=== PATIENT | male | born 1990 | race Caucasian/White ===

== ENCOUNTER 2020-07-31 22:12 | Inpatient (IN) | payer MEDICAID ==
[~2020-07-31] VITALS: Ht 177.8 cm; Wt 58.6 kg
[~2020-07-31 22:12] MED LIST: QUET25TA PO
[2020-08-01] MEDS ORDERED: ZOLPIDEM TARTRATE 10 MG TABLET PO PRN (02:00)
[2020-08-01] MEDS ORDERED: HALOPERIDOL 5 MG TABLET PO PRN (02:00)
[2020-08-01 02:55] VITALS: BP 136/86
[2020-08-01] MEDS ORDERED: INFLUENZA VIRUS VACCINE QVS 2020-21 (6MO+)/PF 60 MCG/0.5 ML SYRINGE IM ONE (03:45)
[2020-08-01 08:15] VITALS: BP 120/76
[2020-08-01] MEDS ORDERED: CloNIDine HCL 0.1 MG TABLET PO PRN (09:00)
[2020-08-01] MEDS ORDERED: BENZOCAINE/MENTHOL LOZENGE PO PRN (09:00)
[2020-08-01] MEDS ORDERED: LOPERAMIDE HCL 2 MG CAPSULE PO PRN (09:00)
[2020-08-01] MEDS ORDERED: PETROLATUM,WHITE 28 GM JELLY TP PRN (09:00)
[2020-08-01] MEDS ORDERED: BACITRACIN 28 GM OINTMENT TP PRN (09:00)
[2020-08-01] MEDS ORDERED: IBUPROFEN 600 MG TABLET PO PRN (09:00)
[2020-08-01] MEDS ORDERED: ACETAMINOPHEN 325 MG TABLET PO PRN (09:00)
[2020-08-01] MEDS ORDERED: ALBUTEROL SULFATE HFA 90 MCG/PUFF 8 GM INHALER IH PRN (09:00)
[2020-08-01] MEDS ORDERED: ONDANSETRON HCL 4 MG TABLET PO PRN (09:00)
[2020-08-01] MEDS ORDERED: MAGNESIUM HYDROXIDE SUSPENSION 30 ML UDCUP PO PRN (09:00)
[2020-08-01] MEDS ORDERED: OMEPRAZOLE 20 MG CAPSULE PO PRN (09:00)
[2020-08-01] MEDS ORDERED: MAG HYDROX/AL HYDROX/SIMETH ES 30 ML SUSPENSION UDCUP PO PRN (09:00)
[2020-08-01] MEDS ORDERED: DOCUSATE SODIUM 100 MG CAPSULE PO PRN (09:00)
[2020-08-01] MEDS: ARIPiprazole 15 MG TABLET PO SCH (10:28)
[2020-08-01] MEDS: DIVALPROEX SODIUM 500 MG DR TABLET PO SCH ×2 (10:28→17:20)
[2020-08-01 17:46] VITALS: BP 133/77
[2020-08-02 04:36] VITALS: BP 131/83
[2020-08-02 08:09] VITALS: BP 138/83
[2020-08-02] MEDS: ARIPiprazole 15 MG TABLET PO SCH (08:49)
[2020-08-02] MEDS: DIVALPROEX SODIUM 500 MG DR TABLET PO SCH ×2 (08:49→16:40)
[2020-08-02 16:21] VITALS: BP 134/82
[2020-08-03 01:01] VITALS: BP 138/94
[2020-08-03 08:17] VITALS: BP 139/90
[2020-08-03] MEDS: ARIPiprazole 15 MG TABLET PO SCH (08:27)
[2020-08-03] MEDS: MULTIVITAMINS WITH MINERALS, THERAPEUTIC TABLET PO SCH (08:27)
[2020-08-03] MEDS: DIVALPROEX SODIUM 500 MG DR TABLET PO SCH ×2 (08:27→16:02)
[2020-08-03] MEDS: LORazepam 2 MG TABLET PO PRN (16:04)
[2020-08-03 16:29] VITALS: BP 130/90
[2020-08-04 06:31] VITALS: BP 124/81
[2020-08-04 07:32] LABS: BASOPHILS % (AUTO) 0.9 % (0.0-2.0); EOSINOPHILS % (AUTO) 1.5 % (1.0-6.0); HEMATOCRIT 45.1 % (41-53); HEMOGLOBIN 15.7 g/dL (13.5-17.5); LYMPHOCYTES # (AUTO) 1.6 K/uL (1.0-4.8); LYMPHOCYTES % (AUTO) 29.6 % (22.0-44.0); MEAN CORPUSCULAR HEMOGLOBIN 32.3 pg (26.0-34.0); MEAN CORPUSCULAR HGB CONC 34.7 G/dL (31.0-37.0); MEAN CORPUSCULAR VOLUME 93 fL (80-100); MONOCYTES # (AUTO) 0.4 K/uL (0.1-1.0); MONOCYTES % (AUTO) 7.1 % (2.0-9.0); NEUTROPHILS # (AUTO) 3.2 K/uL (1.8-7.7); NEUTROPHILS % (AUTO) 60.9 % (40.0-70.0); PLATELET COUNT (AUTO) 185 K/uL (150-450); RED BLOOD CELL COUNT(AUTO) 4.86 MIL/uL (4.50-5.90); RED CELL DISTRIBUTION WIDTH 11.7 % (11.5-14.5)
[2020-08-04 08:04] VITALS: BP 125/83
[2020-08-04 08:13] LABS: APPEARANCE,URINE CLEAR (CLEAR); BILIRUBIN,URINE NEGATIVE (NEGATIVE); GLUCOSE, URINE (UA) NEGATIVE (NEGATIVE); KETONES,URINE NEGATIVE (NEGATIVE); LEUKOCYTE ESTERASE ,URINE NEGATIVE (NEGATIVE); NITRATE,URINE NEGATIVE (NEGATIVE); OCCULT BLOOD,URINE NEGATIVE (NEGATIVE); PH,URINE 6.5 (5.0-8.0); PROTEIN,URINE NEGATIVE (NEGATIVE); UROBILINOGEN,URINE 0.2 mg/dL (<=1.0)
[2020-08-04 08:22] LABS: AMPHET/METH SCREEN,URINE NEGATIVE (NEGATIVE); BARBITURATE SCREEN, URINE NEGATIVE (NEGATIVE); BENZODIAZEPINES SCREEN,URINE NEGATIVE (NEGATIVE); CANNABINOID SCREEN,URINE POSITIVE (NEGATIVE); COCAINE SCREEN,URINE NEGATIVE (NEGATIVE); METHADONE SCREEN, URINE NEGATIVE (NEGATIVE); OPIATE SCREEN,URINE NEGATIVE (NEGATIVE)
[2020-08-04 08:29] LABS: ALANINE AMINOTRANSFERASE 30 U/L (12-78); ALBUMIN 4.7 g/dL (3.4-5.0); ALKALINE PHOSPHATASE 58 U/L (46-116); ANION GAP 11 mmol/L (8-16); ASPARTATE AMINOTRANSFERASE 25 U/L (15-37); BILIRUBIN,TOTAL 0.8 mg/dL (0.1-1.0); CALCIUM, TOTAL 9.7 mg/dL (8.8-10.5); CARBON DIOXIDE 26 mmol/L (22-29); CHLORIDE 98 mmol/L (98-107); CHOL/HDL RATIO 2.8 (4.2-7.3); CHOLESTEROL 139 mg/dL (131-200); FREE T4 (FREE THYROXINE) 1.37 ng/dL (0.76-1.46); GLOMERULAR FILTR. RATE CALC > 60 mL/min (>60); GLUCOSE,RANDOM 85 mg/dL (70-110); HDL CHOLESTEROL 49 mg/dL (40-60); LDL CHOL (CALC.) 84 mg/dL (0-130); POTASSIUM 4.1 mmol/L (3.5-5.1); SODIUM SERUM 135 mmol/L (136-145); THYROID STIMULATING HORMONE 0.48 uIU/mL (0.36-3.74); TOTAL PROTEIN, SERUM 8.5 g/dL (6.4-8.2); TRIGLYCERIDES 31 mg/dL (15-150); UREA NITROGEN, BLOOD 14 mg/dL (7-18)
[2020-08-04 08:38] LABS: PHENCYCLIDINE SCREEN,URINE NEGATIVE (NEGATIVE)
[2020-08-04] MEDS: DIVALPROEX SODIUM 500 MG DR TABLET PO SCH ×2 (09:00→16:23)
[2020-08-04] MEDS: ARIPiprazole 15 MG TABLET PO SCH (09:00)
[2020-08-04] MEDS: MULTIVITAMINS WITH MINERALS, THERAPEUTIC TABLET PO SCH (09:00)
[2020-08-04] MEDS: LORazepam 2 MG TABLET PO PRN (16:23)
[2020-08-04 16:25] VITALS: BP 132/89
[2020-08-05 01:41] VITALS: BP 117/81
[2020-08-05 08:26] VITALS: BP 128/84
[2020-08-05] MEDS: DIVALPROEX SODIUM 500 MG DR TABLET PO SCH ×2 (09:22→16:25)
[2020-08-05] MEDS: ARIPiprazole 15 MG TABLET PO SCH (09:22)
[2020-08-05] MEDS: MULTIVITAMINS WITH MINERALS, THERAPEUTIC TABLET PO SCH (09:24)
[2020-08-05] MEDS: LORazepam 2 MG TABLET PO PRN (16:25)
[2020-08-05 16:39] VITALS: BP 125/82
[2020-08-06 01:07] VITALS: BP 122/76
[2020-08-06 08:33] VITALS: BP 119/80
[2020-08-06] MEDS: ARIPiprazole 15 MG TABLET PO SCH (09:12)
[2020-08-06] MEDS: MULTIVITAMINS WITH MINERALS, THERAPEUTIC TABLET PO SCH (09:12)
[2020-08-06] MEDS: DIVALPROEX SODIUM 500 MG DR TABLET PO SCH (09:13)
[2020-08-06] MEDS ORDERED: DIVA-112 PO (09:48)
[2020-08-06] MEDS ORDERED: ARIP15TA2 PO (09:49)
== END 2020-08-06 15:22 | disposition home or self-care (01) | DRG 750 ==
LOC: B3A 08-01 02:05
PROVIDERS: ADMIT Psychiatry & Neurology Psychiatry; ATTEND Psychiatry & Neurology Psychiatry
DX: F25.9 Schizoaffective disorder, unspecified (principal); F41.9 Anxiety disorder, unspecified; K59.00 Constipation, unspecified; G47.00 Insomnia, unspecified; Z28.21 Immunization not carried out because of patient refusal
CPT/HCPCS: 80307; 84439; 84443